=== PATIENT | female | born 1980 | race African-American/Black ===

== ENCOUNTER 2022-01-19 08:52 | Emergency (ER) | payer MEDICAID ==
[~2022-01-19] VITALS: Ht 167.6 cm; Wt 58.1 kg
--- NOTE | 2022-01-19 08:57 | NUR ---
THE PATIENT BIBS FOR FACIAL DROOP NOTED AT 1900 YESTERDAY,DENIES FOCAL WEAKNESS/SLURRING. THE PATIENT IS ALERT AND ORIENTED X4. IN ROOM AIR AND DENIES SOB. RESPIRATION REGULAR AND UNLABORED. ATTACHED TO THE MONITOR. WARM BLANKET PROVIDED FOR COFMORT. WILL CONTINUE TO MONITOR THE PATIENT.
--- NOTE | 2022-01-19 09:00 | NUR ---
IV LINE ESTABLISHED BLOOD DRAWN AND SENT TO LAB.
--- NOTE | 2022-01-19 09:06 | NUR ---
DR PAEZ AT THE BEDSIDE
[2022-01-19] MEDS ORDERED: AMOX-430 PO ×2 (09:51→10:09)
[2022-01-19] MEDS ORDERED: VALA100026 PO ×2 (09:51→10:09)
[2022-01-19] MEDS ORDERED: IBUP-1955 PO ×2 (09:51→10:09)
[2022-01-19] MEDS ORDERED: PRED20TA PO ×2 (09:51→10:09)
[2022-01-19] MEDS ORDERED: KETOROLAC TROMETHAMINE 15 MG/ML VIAL ONE (09:53)
[2022-01-19] MEDS ORDERED: KETOROLAC TROMETHAMINE INJ 30 MG/ML VIAL IM ONE (10:00)
[2022-01-19 10:17] VITALS: BP 133/76
--- NOTE | 2022-01-19 10:17 | NUR ---
Patient discharged to home in stable condition. Written and verbal after care instructions given. Patient verbalizes understanding of instruction.
== END 2022-01-19 10:17 | disposition home or self-care (01) ==
LOC: ER 09:11
DX: G51.0 Bell's palsy (principal); R51.9 Headache, unspecified; H60.91 Unspecified otitis externa, right ear
CPT/HCPCS: J1885

== ENCOUNTER 2022-01-26 21:29 | Emergency (ER) | payer MEDICAID ==
[~2022-01-26] VITALS: Ht 167.6 cm; Wt 61.2 kg
[~2022-01-26 21:29] MED LIST: AMOX-430 PO; IBUP-1955 PO; PRED20TA PO; VALA100026 PO
--- NOTE | 2022-01-26 22:00 | NUR ---
PATIENT BIB FAMILY C/O SOB & DIZZINESS, RINGING OF EARS ON RIGHT SIDE SINCE 190. PATIENT IS A/O, RR EVEN AND UNLABORED, NO SOB NOTED. PATIENT CONNECTED TO MONITORS.
[2022-01-26] MEDS ORDERED: MECLIZINE HCL 12.5 MG TABLET PO ONE (22:30)
[2022-01-26] MEDS ORDERED: IV NS 0.9% 500 ML BAG IV ONE (22:30)
[2022-01-26] MEDS ORDERED: MECLIZINE HCL 12.5 MG TABLET ONE (22:47)
[2022-01-26 23:54] LABS: BILIRUBIN,URINE NEGATIVE (NEGATIVE); COLOR,URINE YELLOW (YELLOW); LEUKOCYTE ESTERASE ,URINE NEGATIVE (NEGATIVE); NITRITE, URINE NEGATIVE (NEGATIVE); PH,URINE 6.5 (5.0-8.0); PROTEIN,URINE NEGATIVE (NEGATIVE); UGLUCOSE NEGATIVE (NEGATIVE); UROBILINOGEN,URINE 0.2 EU/dL (0.2)
[2022-01-27 00:23] LABS: BASOPHILS % (AUTO) 0.1 % (0.0-2.0); HEMATOCRIT 41 % (33-45); HEMOGLOBIN 13.2 g/dL (11.5-14.8); MEAN CORPUSCULAR HGB CONC 32 g/dl (31.0-36.0); MEAN CORPUSCULAR VOLUME 88 fL (82-100); MONOCYTES # (AUTO) 0.5 K/uL (0.1-1.30); RED BLOOD CELL COUNT(AUTO) 4.71 MIL/uL (4.0-5.2)
[2022-01-27 00:30] VITALS: BP 128/74
[2022-01-27 00:43] LABS: LYMPHOCYTES # (AUTO) 1.8 K/uL (0.8-4.8); LYMPHOCYTES % (AUTO) 12.9 % (20.0-44.0); MONOCYTES % (AUTO) 3.8 % (2.0-12.0); NEUTROPHILS # (AUTO) 11.4 K/uL (1.8-8.9); NEUTROPHILS % (AUTO) 83.2 % (43.0-81.0); PLATELET COUNT (AUTO) 153 K/uL (150-450); WHITE BLOOD COUNT (AUTO) 13.7 K/uL (4.3-11.0)
--- NOTE | 2022-01-27 01:00 | NUR ---
Patient does not wish to proceed with medical care recommended by Dr. Madrid. Patient given information related to possible complications, up to and including , which could occur as a result of leaving the hospital at this time. Patient verbalizes understanding of risks involved due to leaving against medical advice. Patient has signed AMA form.
[2022-01-27 07:16] LABS: CREATININE 0.7 mg/dL (0.6-1.3); POTASSIUM 4.2 mmol/L (3.5-5.1)
[2022-01-27 10:41] LABS: CALCIUM, SERUM 8.7 mg/dL (8.5-10.1)
[2022-01-27 12:07] LABS: ALBUMIN 3.4 g/dL (3.4-5.0); BILIRUBIN,TOTAL 0.2 mg/dL (0.2-1.0); TOTAL PROTEIN, SERUM 6.5 g/dL (6.4-8.2)
== END 2022-01-27 01:01 | disposition left against medical advice (07) ==
LOC: ER 21:55
DX: R42 Dizziness and giddiness (principal); G51.0 Bell's palsy; Z79.899 Other long term (current) drug therapy
CPT/HCPCS: 36415; 70450; 71045; 80048; 80076; 81003; 85025; 85730; 93005; 96360; 99285; J7040; J8597

== ENCOUNTER 2022-01-29 17:13 | Emergency (ER) | payer MEDICAID ==
[~2022-01-29] VITALS: Ht 160 cm; Wt 64.0 kg
--- NOTE | 2022-01-29 17:25 | NUR ---
BIB , UPPER ABDOMINAL PAIN SUDDEN ONSET X 2 HOURS. TOOK MOTRIN 800MG 1 HOUR AGO WITH NO RELIEF. Dx WITH [facility]S [facility]SY 3 DAYS AGO. PATIENT IS CRYING. PAIN SCALE IS 10/10. PLACED COMFORTABLY IN BED. VITALS CHECKED
--- NOTE | 2022-01-29 17:30 | NUR ---
IV CANNULA G22 INSERTED ON RIGHT HAND. BLOOD DRAWN AND SENT TO LAB
--- NOTE | 2022-01-29 17:41 | NUR ---
STAT XRAY AT BEDSIDE
[2022-01-29] MEDS ORDERED: ONDANSETRON HCL/PF 4 MG/2 ML VIAL ONE (17:43)
[2022-01-29] MEDS ORDERED: MORPHINE SULFATE INJ 4 MG/ML DISP.SYRIN ONE (17:43)
[2022-01-29] MEDS ORDERED: MAG HYDROX/AL HYDROX/SIMETH 30 ML UDC ONE (17:52)
[2022-01-29] MEDS ORDERED: LIDOCAINE VISCOUS 2% UD 15 ML UDC ONE (17:53)
[2022-01-29 18:00] LABS: BASOPHILS # (AUTO) 0.1 K/uL (0.0-0.2); LYMPHOCYTES # (AUTO) 1.6 K/uL (0.8-4.8)
[2022-01-29] MEDS ORDERED: MAG HYDROX/AL HYDROX/SIMETH 30 ML UDC PO ONE (18:00)
[2022-01-29] MEDS ORDERED: MORPHINE SULFATE INJ 2 MG/ML DISP.SYRIN IV ONE (18:00)
[2022-01-29] MEDS ORDERED: ONDANSETRON HCL/PF 4 MG/2 ML VIAL IV ONE (18:00)
[2022-01-29] MEDS ORDERED: IV NS 0.9% 500 ML BAG IV ONE (18:00)
[2022-01-29] MEDS ORDERED: LIDOCAINE VISCOUS 2% UD 15 ML UDC MM ONE (18:00)
[2022-01-29 18:09] LABS: BASOPHILS % (AUTO) 0.4 % (0.0-2.0); HEMATOCRIT 43 % (33-45); HEMOGLOBIN 13.7 g/dL (11.5-14.8); LYMPHOCYTES % (AUTO) 7.5 % (20.0-44.0); MEAN CORPUSCULAR HGB CONC 32 g/dl (31.0-36.0); MEAN CORPUSCULAR VOLUME 89 fL (82-100); MONOCYTES # (AUTO) 0.5 K/uL (0.1-1.30); MONOCYTES % (AUTO) 2.5 % (2.0-12.0); NEUTROPHILS # (AUTO) 19.6 K/uL (1.8-8.9); NEUTROPHILS % (AUTO) 89.6 % (43.0-81.0); RED BLOOD CELL COUNT(AUTO) 4.82 MIL/uL (4.0-5.2); WHITE BLOOD COUNT (AUTO) 21.9 K/uL (4.3-11.0)
--- NOTE | 2022-01-29 18:10 | NUR ---
RECEIVED A CALL FROM PHARMACY. THEY GAVE INSTRUCTION TO DRAW BLOOD FOR LITHIUM LEVEL BEFORE FIRST DOSE OF LITHIUM MEDICINE. CALLED LAB AND INFORMED THEM.
--- NOTE | 2022-01-29 18:15 | NUR ---
REPORT GIVEN TO LOUISE WAYNE
[2022-01-29 18:17] LABS: CREATININE 0.7 mg/dL (0.6-1.3); POTASSIUM 3.8 mmol/L (3.5-5.1)
[2022-01-29 18:28] LABS: BAND % (MANUAL) 1 % (0.0-5.0); LYMPHOCYTES % (MANUAL) 7 % (16-48); MONOCYTES % (MANUAL) 1 % (0-11.0); NEUTROPHILS % (MANUAL) 91 (42-76)
[2022-01-29 18:33] LABS: ALBUMIN 3.6 g/dL (3.4-5.0); BILIRUBIN,DIRECT 0.1 mg/dL (0.0-0.2); BILIRUBIN,TOTAL 0.4 mg/dL (0.2-1.0)
--- NOTE | 2022-01-29 18:36 | NUR ---
PAPER PATTERN FOLDER AT BEDSIDE FOR LIANA OF GALLBLADDER
--- NOTE | 2022-01-29 19:23 | NUR ---
FOLLOWED UP WITH LAB REGARDING URINE.
[2022-01-29 20:13] LABS: BILIRUBIN,URINE NEGATIVE (NEGATIVE); COLOR,URINE YELLOW (YELLOW); LEUKOCYTE ESTERASE ,URINE NEGATIVE (NEGATIVE); NITRITE, URINE NEGATIVE (NEGATIVE); PROTEIN,URINE NEGATIVE (NEGATIVE); UGLUCOSE NEGATIVE (NEGATIVE); UROBILINOGEN,URINE 0.2 EU/dL (0.2)
[2022-01-29] MEDS ORDERED: OMEP20CA15 PO (20:30)
[2022-01-29] MEDS ORDERED: TYL2T PO (20:54)
--- NOTE | 2022-01-29 21:00 | NUR ---
IV removed. Catheter intact and site benign. Pressure and 4x4 applied to site. No bleeding noted.Patient does not wish to proceed with medical care recommended by Dr. NICOLE. Patient given information related to possible complications, up to and including , which could occur as a result of leaving the hospital at this time. Patient verbalizes understanding of risks involved due to leaving against medical advice. Patient has signed AMA form.
[2022-01-29 23:14] VITALS: BP 145/95
== END 2022-01-29 21:00 | disposition left against medical advice (07) ==
LOC: ER 17:15
DX: K29.70 Gastritis, unspecified, without bleeding (principal); G51.0 Bell's palsy; Z79.899 Other long term (current) drug therapy
CPT/HCPCS: 36415; 71045; 76705; 80048; 80076; 81003; 83690; 84703; 85007; 85025; 87086; 96374; 96375; 99285; J2270; J2405; J7040

== ENCOUNTER 2025-09-10 23:52 | Emergency (ER) | payer MEDICAID, OTHER ==
[~2025-09-10] VITALS: Ht 157.5 cm; Wt 63.5 kg
[~2025-09-10 23:52] MED LIST changes: +OMEP20CA15 PO; +TYL2T PO
[2025-09-11 01:06] LABS: PLATELET COUNT (AUTO) 284 K/uL (150-450); RED BLOOD CELL COUNT(AUTO) 4.33 MIL/uL (4.0-5.2); RED CELL DISTRIBUTION WIDTH 14.5 % (11.5-15.0); WHITE BLOOD COUNT (AUTO) 4.8 K/uL (4.3-11.0)
[2025-09-11 01:14] LABS: CALCIUM, SERUM 9.2 mg/dL (8.5-10.1); CREATININE 0.7 mg/dL (0.6-1.3); SODIUM SERUM 142 mmol/L (136-145); UREA NITROGEN, BLOOD 18 mg/dL (7-18)
[2025-09-11 01:21] LABS: INR 0.96 (0.91-1.10)
[2025-09-11 01:43] VITALS: BP 120/81; TEMP 98.2; O2SAT 97
== END 2025-09-11 01:46 | disposition home or self-care (01) ==
LOC: ER 23:59
DX: F41.9 Anxiety disorder, unspecified (principal); R07.89 Other chest pain; Z79.52 Long term (current) use of systemic steroids; Z79.624 Long term (current) use of inhibitors of nucleotide synthesis; Z79.899 Other long term (current) drug therapy
CPT/HCPCS: 36415; 71045-TC; 80048-TC; 84484-TC; 85025-TC; 85378-TC; 85730-TC